=== PATIENT | male | born 1975 | race Caucasian/White ===

== ENCOUNTER 2021-08-11 15:18 | Emergency (ER) | payer OTHER ==
[2021-08-11 17:39] LABS: BASOPHIL 0.6 % (0-2); EOSINOPHIL 6.7 % (0-5); HCT 44.9 % (42.0-52.0); HGB 14.2 g/dl (13.2-18.0); MCH 26.9 pg (25.0-31.0); MCHC 31.6 g/dL (32.0-36.0); MONOCYTE 10.1 % (0-12); MPV 9.9 fL (6.0-9.5); NEUTROPHIL 51.2 % (41-80); NRBC 0; PLT 223 K/uL (150-400); RBC 5.28 M/uL (4.70-6.00); RDW 13.4 % (11.5-14.0)
[2021-08-11 17:41] LABS: BILIRUBIN NEGATIVE (NEGATIVE); BLOOD NEGATIVE Ery/uL (NEGATIVE); CLARITY CLEAR (CLEAR); COLOR YELLOW (YELLOW); GLUCOSE (U) NORMAL (NORMAL); LEUKOCYTES NEGATIVE Leu/uL (NEGATIVE); NITRITE NEGATIVE (NEGATIVE); PROTEIN NEGATIVE (NEGATIVE); SPECIFIC GRAVITY >=1.030 (1.001-1.030); UROBILINOGEN 0.2 mg/dL (0.2-1.0)
[2021-08-11 18:17] LABS: ALBUMIN 4.3 g/dL (3.4-5.0); BILIRUBIN - TOTAL 0.7 mg/dL (0.2-1.0); BUN/CREAT RATIO (CALC) 20.3 RATIO; CREATININE 0.79 mg/dL (0.67-1.17); GLOBULIN (CALCULATION) 3.5 g/dL; POTASSIUM 4.6 mmol/L (3.5-5.1); TOTAL PROTEIN 7.8 g/dL (6.4-8.2)
== END 2021-08-11 21:25 | disposition home or self-care (01) ==
LOC: FER 15:18
PROVIDERS: Emergency Medicine
DX: R10.31 Right lower quadrant pain (principal); I10 Essential (primary) hypertension; Z20.822 Contact with and (suspected) exposure to COVID-19
CPT/HCPCS: 36415; 80053; 81003; 82150; 83690; 85025; Q9967; U0002